=== PATIENT | female | born 1995 | race African-American/Black ===

== ENCOUNTER 2019-05-14 02:28 | Emergency (ER) | payer BC, OTHER ==
--- NOTE | 2019-05-14 03:02 | PDOC ---
Attending Attestation - Resident Resident Name: Namita Bhatti - ED Attending Attestation I have performed the following: I have examined & evaluated the patient, The case was reviewed & discussed with the resident, I agree w/resident's findings & plan - HPI HPI: 05/14/19 04:39 Pt comes with abdominal pain. - Physicial Exam PE: 05/14/19 05:34 afebrile VSS no rebound and no guarding of abd. Diffuse gassy abd pain pt has normal lung and heart no flank pain no pitting edema no rash normal neuro exam - Medical Decision Making 05/14/19 05:35 CBC, chem normal 05/14/19 05:35 Pt is constipated FUA abd normal; no air/fluid levels. 05/15/19 00:08 Stable for discharge
[2019-05-14 03:09] VITALS: BP 108/61; PULSE 97; TEMP 98.4; BMI 27.8
[2019-05-14] MEDS ORDERED: ACETAMINOPHEN 1000 MG/100 ML VIAL (NON FORMULARY) IVPB ONE (03:36)
--- NOTE | 2019-05-14 03:40 | PDOC ---
History of Present Illness - General Chief Complaint: Pain Stated Complaint: ABD PAIN Time Seen by Provider: 05/14/19 02:57 - History of Present Illness Initial Comments: 05/14/19 03:42 Pt is a 24y/o female with no PMH who presents with achy abdominal pain and cramping back pain x 10 days. She has been to [facility] ED 1 week ago and 5 days ago with no findings on CT or US. The pain is mid abdominal and lumbar back. She was given famotidine, ibuprofen, and robaxin with no improvement in symptoms. Pt also reports no bowel movement in 3 days, but it able to pass gas. Last BM was diarrhea x1. She denies fever, chills, nausea, or vomiting. Past History - Past Medical History Allergies/Adverse Reactions: Allergies Allergy/AdvReac Type Severity Reaction Status Date / Time No Known Allergies Allergy Verified 05/14/19 03:05 Home Medications: Ambulatory Orders No Home Medications 0 dose .ROUTE UTDICT 03/21/13 Polyethylene Glycol 3350 [Miralax (For Daily Use) -] 17 gm PO DAILY #1 bottle COPD: No - Immunization History Immunization Up to Date: Yes - Psycho Social/Smoking Cessation Hx Smoking History: Never smoked Have you smoked in the past 12 months: No Number of Cigarettes Smoked Daily: 0 Hx Alcohol Use: No Substance Use Type: None *Physical Exam - Vital Signs Last Vital Signs Temp Pulse Resp BP Pulse Ox 98.4 F 97 H 18 108/61 98 05/14/19 03:03 05/14/19 03:03 05/14/19 03:03 05/14/19 03:03 05/14/19 03:03 ED Treatment Course - LABORATORY CBC & Chemistry Diagram: 05/14/19 03:45 05/14/19 03:45 Medical Decision Making - Medical Decision Making 05/14/19 03:42 Pt is a 24y/o female with no PMH who presents with achy abdominal pain and cramping back pain x 10 days. She has been to [facility] ED 1 week ago and 5 days ago with no findings on CT or US. ddx: constipation, , IBS orders: CBC, CMP, , abd x-ray x-ray- constipation 05/14/19 05:06 UA negative d/c with script for Miralax, counseled on diet, f/u with PCP this week as scheduled Discharge - Discharge Information Problems reviewed: Yes Clinical Impression/Diagnosis: Constipation Qualifiers: Constipation type: unspecified constipation type Qualified Code(s): K59.00 - Constipation, unspecified Condition: Stable Disposition: HOME - Additional Discharge Information Prescriptions: Polyethylene Glycol 3350 [Miralax (For Daily Use) -] 17 gm PO DAILY #1 bottle - Follow up/Referral Referrals: Rebecca Seaman MD [Primary Care Provider] - - Patient Discharge Instructions Patient Printed Discharge Instructions: High-Fiber Diet, DI for Constipation Additional Instructions: You were seen in the emergency room for abdominal and back pain. An x-ray of your abdomen shows constipation. You are being given a prescription for a medication to help you go to the bathroom (Miralax). You may also take Tylenol as directed on the bottle to help with pain. Keep your appointment with your primary care doctor this week. Return to the emergency room if your pain worsens , you have a fever above 101, vomiting, or you cannot pass gas. - Post Discharge Activity
[2019-05-14] MEDS ORDERED: ACETAMINOPHEN INJECTION 100 ML IVPB ONE (03:47)
[2019-05-14] MEDS ORDERED: SODIUM CHLORIDE 1,000 ML IV STA (03:52)
[2019-05-14] MEDS ORDERED: POLYETHYLENE GLYCOL 3350 119 GM BTL PO ONE (03:54)
[2019-05-14 04:09] LABS: BASO % 1.1 % (0-2.0); EOS % 1.2 % (0-4.5); HEMATOCRIT 42.5 % (32.4-45.2); HEMOGLOBIN 14.5 GM/dL (10.7-15.3); LYMPH % 9.6 % (8-40); MCH 31.6 pg (25.7-33.7); MCHC 34.2 g/dl (32.0-36.0); MEAN CELL VOLUME 92.4 fl (80-96); MEAN PLT VOLUME 7.8 fl (7.5-11.1); MONO % 5.7 % (3.8-10.2); NEUT % 82.4 % (42.8-82.8); PLATELET COUNT 297 K/MM3 (134-434); WHITE BLOOD COUNT 5.3 K/mm3 (4.0-10.0)
[2019-05-14 04:34] LABS: EPI CELLS 1.4 /HPF (0-5/HPF); HYALINE CASTS 2 /lpf (0-8); URINE APPEARANCE CLEAR; URINE BILIRUBIN NEGATIVE (NEGATIVE); URINE COLOR YELLOW; URINE GLUCOSE (UA) NEGATIVE (NEGATIVE); URINE KETONE NEGATIVE (NEGATIVE); URINE LEUK ESTERASE NEGATIVE (NEGATIVE); URINE NITRITE NEGATIVE (NEGATIVE); URINE PROTEIN NEGATIVE (NEGATIVE); URINE RBC 2 /hpf (0-4); URINE UROBILINOGEN 0.2 mg/dL (0.2-1.0); URINE WBC 0 /hpf (0-5)
[2019-05-14 05:26] LABS: CREATININE 0.7 mg/dL (0.55-1.3)
[2019-05-14 05:27] LABS: CALCIUM 8.9 mg/dL (8.5-10.1)
[2019-05-14 10:47] LABS: ALBUMIN 3.9 g/dl (3.4-5.0); BILIRUBIN,TOTAL 0.5 mg/dL (0.2-1); TOT PROT 7.9 g/dl (6.4-8.2)
== END 2019-05-14 05:48 | disposition home or self-care (01) ==
LOC: JER 02:28
PROC: 3E033NZ Introduction of Analgesics, Hypnotics, Sedatives into Peripheral Vein, Percutaneous Approach (ICD-10-PCS; principal; 2019-05-14)
PROC: 3E0337Z Introduction of Electrolytic and Water Balance Substance into Peripheral Vein, Percutaneous Approach (ICD-10-PCS; 2019-05-14)
DX: K59.00 Constipation, unspecified (principal)
CPT/HCPCS: 36415; 74019-TC-FY; 80053; 81003; 84703; 85025; 87086; 96361; 96374; 99283-25; J0131; J7030

== ENCOUNTER 2022-06-06 23:10 | Inpatient (IN) | payer OTHER ==
[2022-06-06] MEDS ORDERED: ELECTROLYTE-148 SOLN 1,000 ML IV ONE (23:45)
[2022-06-06] MEDS ORDERED: CITRIC ACID/SODIUM CITRATE 30 ML UNIT-DOSE CUP PO ONE (23:45)
[2022-06-07] MEDS ORDERED: ELECTROLYTE-148 SOLN 1,000 ML IV SCH (00:15)
[2022-06-07] MEDS ORDERED: OXYTOCIN 30 UNITS in 0.9% NS 30 UNIT/500 ML INFUS.BAG IVPB ONE (00:27)
[2022-06-07] MEDS ORDERED: morphine SULFATE (PF) 1 MG/2 ML SYRINGE ONE (00:31)
[2022-06-07] MEDS ORDERED: FENTANYL CITRATE/PF 50 MCG/ML VIAL ONE (00:31)
[2022-06-07] MEDS ORDERED: ONDANSETRON 4 MG/2 ML VIAL ONE (00:31)
[2022-06-07] MEDS ORDERED: ceFAZolin SODIUM 1 GM VIAL ONE (00:31)
[2022-06-07] MEDS ORDERED: KETOROLAC TROMETHAMINE 30 MG/1 ML VIAL ONE (00:31)
[2022-06-07] MEDS ORDERED: DEXAMETHASONE SOD PHOSPHATE 4 MG/1 ML VIAL ONE (00:31)
[2022-06-07 00:41] VITALS: BMI 31.5
[2022-06-07] MEDS ORDERED: HEPATITIS B VIR VAC (ENGERIX) 10 MCG/0.5 ML VIAL (PF) IM ONE (00:45)
[2022-06-07] MEDS ORDERED: ONDANSETRON 4 MG/2 ML VIAL IVPUSH PRN (00:46)
[2022-06-07] MEDS ORDERED: ACETAMINOPHEN 325 MG TABLET (FP) PO PRN ×2 (00:46→02:25)
[2022-06-07] MEDS ORDERED: ELECTROLYTE-148 SOLN 500 ML IV ONE (00:50)
[2022-06-07 00:56] LABS: INR 0.91 (0.83-1.09); PROTHROMBIN TIME (PATIENT) 10.6 SEC (9.7-13.0)
[2022-06-07 00:58] LABS: ACTIVATED PTT 27.9 SECONDS (25.2-36.5)
[2022-06-07 00:59] LABS: BASO % 0.1 % (0-2.0); CALCIUM 8.5 mg/dL (8.5-10.1); EOS % 2.1 % (0-4.5); HEMATOCRIT 35.8 % (32.4-45.2); HEMOGLOBIN 12.6 GM/dL (10.7-15.3); LYMPH % 17.9 % (8-40); MCH 33.5 pg (25.7-33.7); MCHC 35.2 g/dl (32.0-36.0); MEAN CELL VOLUME 95.1 fl (80-96); MEAN PLT VOLUME 9.6 fl (7.5-11.1); MONO % 7.2 % (3.8-10.2); NEUT % 72.7 % (42.8-82.8); PLATELET COUNT 210 10^3/uL (134-434); RBC 3.76 M/mm3 (3.60-5.2); RDW 13.2 % (11.6-15.6); WHITE BLOOD COUNT 9.2 K/mm3 (4.0-10.0)
[2022-06-07 01:00] LABS: BLOOD UREA NITROGEN 8.5 mg/dL (7-18)
[2022-06-07 01:03] LABS: CREATININE 0.7 mg/dL (0.55-1.3)
[2022-06-07 01:56] LABS: HIV INTERPRETATION NEGATIVE (NEGATIVE)
[2022-06-07] MEDS ORDERED: METHYLERGONOVINE MALEATE 0.2 MG/1 ML AMP IM PRN (02:25)
[2022-06-07] MEDS ORDERED: OXYTOCIN 20 UNITS in 0.9% NS 20 UNIT/1,000 ML INFUS.BAG IV ONE (03:47)
[2022-06-07] MEDS: IBUPROFEN 800 MG/8 ML IJ IVPB PRN ×2 (04:44→16:36)
[2022-06-07] MEDS: OXYTOCIN 20 UNITS in 0.9% NS 20 UNIT/1,000 ML INFUS.BAG IV SCH ×2 (04:47→12:00)
[2022-06-07] MEDS: IBUPROFEN 600 MG TABLET (FP) PO PRN ×2 (10:15→21:41)
[2022-06-07] MEDS: FERROUS SO4 325 MG TABLET (FP) PO SCH ×2 (10:15→21:20)
[2022-06-07] MEDS: PRENATAL VITAMINS W/ FOLIC ACID TABLET (FP) PO SCH (10:15)
[2022-06-07] MEDS: oxyCODONE HCL 5 MG TABLET PO PRN (19:43)
[2022-06-08] MEDS: SIMETHICONE 80 MG TAB.CHEW (FP) PO PRN ×4 (00:29→22:14)
[2022-06-08] MEDS: oxyCODONE HCL 5 MG TABLET PO PRN ×4 (00:29→22:14)
[2022-06-08] MEDS: SENNOSIDES/DOCUSATE COMBO (SENNA PLUS) TABLET (UD) PO PRN ×2 (00:29→22:14)
[2022-06-08] MEDS ORDERED: BISACODYL 10 MG SUPP.RECT RC PRN (02:25)
[2022-06-08 07:56] LABS: BASO % 0.1 % (0-2.0); EOS % 1.6 % (0-4.5); HEMOGLOBIN 10.9 GM/dL (10.7-15.3); LYMPH % 17.1 % (8-40); MCHC 35.3 g/dl (32.0-36.0); MEAN CELL VOLUME 96.5 fl (80-96); MONO % 5.3 % (3.8-10.2); NEUT % 75.9 % (42.8-82.8); PLATELET COUNT 180 10^3/uL (134-434); RBC 3.21 M/mm3 (3.60-5.2); RDW 13.4 % (11.6-15.6); WHITE BLOOD COUNT 10.8 K/mm3 (4.0-10.0)
[2022-06-08] MEDS: FERROUS SO4 325 MG TABLET (FP) PO SCH ×2 (10:07→22:14)
[2022-06-08] MEDS: IBUPROFEN 600 MG TABLET (FP) PO PRN ×2 (10:07→17:53)
[2022-06-08] MEDS: PRENATAL VITAMINS W/ FOLIC ACID TABLET (FP) PO SCH (10:07)
[2022-06-09] MEDS: oxyCODONE HCL 5 MG TABLET PO PRN ×2 (03:48→20:38)
[2022-06-09] MEDS: SIMETHICONE 80 MG TAB.CHEW (FP) PO PRN ×3 (03:49→20:38)
[2022-06-09] MEDS: FERROUS SO4 325 MG TABLET (FP) PO SCH ×2 (09:09→22:20)
[2022-06-09] MEDS: PRENATAL VITAMINS W/ FOLIC ACID TABLET (FP) PO SCH (09:09)
[2022-06-09] MEDS: IBUPROFEN 600 MG TABLET (FP) PO PRN (09:09)
[2022-06-09] MEDS: ELECTROLYTE-148 SOLN 1,000 ML IV SCH ×2 (22:17→22:18)
[2022-06-09] MEDS: OXYTOCIN 20 UNITS in 0.9% NS 20 UNIT/1,000 ML INFUS.BAG IV SCH (22:18)
[2022-06-09] MEDS: SENNOSIDES/DOCUSATE COMBO (SENNA PLUS) TABLET (UD) PO PRN (22:20)
[2022-06-10 09:05] VITALS: BP 136/92; PULSE 84; RESP 15; TEMP 97.6
[2022-06-10] MEDS: IBUPROFEN 600 MG TABLET (FP) PO PRN (09:40)
[2022-06-10] MEDS: PRENATAL VITAMINS W/ FOLIC ACID TABLET (FP) PO SCH (09:40)
[2022-06-10] MEDS: SIMETHICONE 80 MG TAB.CHEW (FP) PO PRN (09:40)
[2022-06-10] MEDS: FERROUS SO4 325 MG TABLET (FP) PO SCH (09:40)
== END 2022-06-10 12:50 | disposition home or self-care (01) | DRG 540 ==
LOC: JLDR 23:10 → J3W 06-07 03:28
PROVIDERS: ADMIT Obstetrics & Gynecology; ATTEND Obstetrics & Gynecology
PROC: 10D00Z1 Extraction of Products of Conception, Low, Open Approach (ICD-10-PCS; principal; 2022-06-07)
DX: O34.211 Maternal care for low transverse scar from previous cesarean delivery (principal); O42.02 Full-term premature rupture of membranes, onset of labor within 24 hours of rupture; Z3A.37 37 weeks gestation of pregnancy; Z37.0 Single live birth
CPT/HCPCS: 36415; 80048; 85025; 85610; 85730; 86780; 86850; 86900; 86901; 87389; 88307-TC; C9803-CS; U0003; U0005